=== PATIENT | male | born 1945 | race Caucasian/White ===

== ENCOUNTER 2017-07-03 07:38 | Inpatient (IN) | payer MEDICARE, OTHER ==
[~2017-07-03] VITALS: Ht 182.9 cm; Wt 83.9 kg
--- NOTE | ~2017-07-03 | PROC ---
[address] [address] PROCEDURE REPORT Name: NASRIN JOHNSON Room: [address] IN ..#: [id number] Admission: 07/03/17 Attend Phys: Lana Choi MD Discharge: Date of : 45 Report #: [id number] THIS REPORT FOR: //name// For GI report, please see the Provation report in Perceptive 7 content. By: 44Medical Records Staff AMOR /NICOLA
[2017-07-03 07:44] VITALS: BP 141/91
[2017-07-03] MEDS ORDERED: ZOCOR20 MG PO (07:47)
[2017-07-03] MEDS ORDERED: PLAVIX 75 MG TA75 M1 PO (07:47)
[2017-07-03] MEDS ORDERED: HYDROCHLOROTH12.5 M1 PO (07:47)
[2017-07-03] MEDS ORDERED: SYNTHROID88 MCG PO (07:47)
[2017-07-03] MEDS ORDERED: PROAIR HFA8.5 GM INH (07:48)
[2017-07-03] MEDS ORDERED: FLOVENT DISKUS50 MCG INH (07:48)
[2017-07-03 08:56] LABS: URINE BILIRUBIN NEGATIVE (Negative); URINE BLOOD NEGATIVE (Negative); URINE CLARITY CLEAR; URINE COLOR YELLOW; URINE GLUCOSE-RANDOM NEGATIVE (Negative); URINE KETONES NEGATIVE (Negative); URINE LEUKOCYTES-REFLEX NEGATIVE (Negative); URINE NITRITE-REFLEX NEGATIVE (Negative); URINE PROTEIN NEGATIVE (Negative); URINE SPECIFIC GRAVITY 1.025 (1.005-1.030); URINE UROBILINOGEN 0.2 E.U./dl (0.2-1.0)
[2017-07-03 08:58] LABS: ABSOLUTE BASOPHILS 0.1 thou/uL (0.0-0.2); ABSOLUTE EOSINOPHILS 0.4 thou/uL (0.0-0.7); ABSOLUTE LYMPHOCYTES 2.2 thou/uL (0.8-5.3); ABSOLUTE MONOCYTES 0.9 thou/uL (0.0-1.2); ABSOLUTE NEUTROPHILS 5.5 thou/uL (1.6-8.1); BASOPHILS 1.1 %; EOSINOPHILS 4.5 %; HEMATOCRIT 34.7 % (42.0-52.0); HEMOGLOBIN 11.9 gm/dL (14.0-18.0); LYMPHOCYTES 24.5 %; MCH 32.8 pg (26.0-34.0); MCHC 34.2 g/dL (28.0-37.0); MONOCYTES 9.8 %; MPV 9.9 fl. (7.2-11.1); NUCLEATED RBCS 0 /100WBC; PLATELET COUNT* 209 thou/uL (150-400); POLYS 60.1 %; RBC 3.61 mil/uL (4.50-6.00); RDW-CV 13.6 % (10.5-14.5); WBC 9.1 thou/uL (4.0-11.0)
[2017-07-03 09:04] LABS: CALCIUM 8.7 mg/dL (8.5-10.1); CREATININE 1.6 mg/dL (0.6-1.3); POTASSIUM 3.9 mmol/L (3.5-5.1)
[2017-07-03 09:09] LABS: ALBUMIN 3.7 g/dL (3.4-5.0); TOTAL BILIRUBIN 0.3 mg/dL (<0.1-1.0); TOTAL PROTEIN 6.8 g/dL (6.4-8.2)
[2017-07-03 09:59] VITALS: BP 143/98
[2017-07-03 10:20] VITALS: BP 155/86
--- NOTE | 2017-07-03 11:08 | EKG ---
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 [employer] : 1945 Requested By: Mert Saldana Order Number: [id number] Corky MD: Arthur Mejia Measurements Intervals [place] Rate: 73 P: -16 NV: 182 QRS: 18 QRSD: 106 T: 49 QT: 396 QTc: 437 Interpretive Statements Sinus rhythm Multiform ventricular premature complexes RSR' in V1 or V2, right VCD or RVH No previous ECG available for comparison Electronically Signed On 07-03-2017 11:08:23 [employer] by Arthur Mejia [email or web address] <ELECTRONICALLY SIGNED> By: Arthur Mejia MD, [facility] 07/03/17 1108 0801 0801 Arthur Mejia MD, [facility] /EPI
--- NOTE | 2017-07-03 11:19 | NUR ---
ASSUMED CARE OF PATIENT AT 1020 AFTER TRANSFER TO ROOM 107 FROM EMERGENCY DEPARTMENT. PATIENT AWAKE, ALERT, AND ORIENTED APPROPRIATELY. ADMISSION DOCUMENTATION COMPLETED AND CHARTED. NO COMPLAINTS OF PAIN. ORIENTED TO ROOM AND EDUCATED REGARDING USE OF CALL LIGHT. DENIES NEEDS AT THIS TIME. NURSING WILL CONTINUE TO MONITOR.
[2017-07-03 13:13] LABS: HEMATOCRIT 32.5 % (42.0-52.0); HEMOGLOBIN 11.2 gm/dL (14.0-18.0); MCH 33.1 pg (26.0-34.0); MCHC 34.3 g/dL (28.0-37.0); MCV 96.4 fL (80.0-100.0); MPV 9.3 fl. (7.2-11.1); RBC 3.37 mil/uL (4.50-6.00); RDW-CV 13.9 % (10.5-14.5); WBC 8.9 thou/uL (4.0-11.0)
--- NOTE | 2017-07-03 15:08 | NUR ---
GIVEN GOLYTELY FOR COLON PREP AT THIS TIME. GIVEN TWO LITERS AND INSTRUCTED PATIENT TO DRINK IT ALL. PATIENT AGREED TO DO SO. WILL LET NURSE KNOW WHEN 2 LITERS IS COMPLETELY DRANK. 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 PATIENT AGREED TO DO SO. NURSING WILL CONTINUE TO MONITOR.
[2017-07-03 16:00] VITALS: BP 160/82
--- NOTE | 2017-07-03 17:50 | NUR ---
NO CHANGE IN PATIENT STATUS. GIVEN PRN TYLENOL FOR HEADACHE, RESOLVED. CONTINUES TO DRINK GOLYTELY FOR COLON PREP TOMORROW. DENIES NEEDS AT THIS TIME. CALL LIGHT WITHIN REACH. NURSING WILL CONTINUE TO MONITOR.
[2017-07-03 19:16] LABS: HEMATOCRIT 33.6 % (42.0-52.0); HEMOGLOBIN 11.4 gm/dL (14.0-18.0); MCH 32.9 pg (26.0-34.0); MCV 96.7 fL (80.0-100.0); MPV 9.3 fl. (7.2-11.1); RBC 3.47 mil/uL (4.50-6.00); RDW-CV 14.3 % (10.5-14.5); WBC 9.4 thou/uL (4.0-11.0)
[2017-07-03 20:00] VITALS: BP 142/88
[2017-07-04 01:28] LABS: HEMATOCRIT 29.6 % (42.0-52.0); HEMOGLOBIN 10.3 gm/dL (14.0-18.0); MCH 33.3 pg (26.0-34.0); MCHC 34.7 g/dL (28.0-37.0); MPV 9.9 fl. (7.2-11.1); RBC 3.08 mil/uL (4.50-6.00); RDW-CV 14.1 % (10.5-14.5); WBC 10.4 thou/uL (4.0-11.0)
[2017-07-04 01:47] LABS: ALBUMIN 3.2 g/dL (3.4-5.0); CALCIUM 7.9 mg/dL (8.5-10.1); CREATININE 1.3 mg/dL (0.6-1.3); MAGNESIUM 1.6 mg/dL (1.8-2.4); POTASSIUM 3.7 mmol/L (3.5-5.1); TOTAL BILIRUBIN 0.4 mg/dL (<0.1-1.0); TOTAL PROTEIN 5.4 g/dL (6.4-8.2)
--- NOTE | 2017-07-04 07:52 | NUR ---
PT COMPLETES BOWEL PREP, PT HAD RUST COLORED STOOLS THROUGHOUT THE NIGHT, REPORTS LAST STOOL WAS CLEAR, PT VOICES NO COMPLIANT/CONCERNS THIS SHIFT, UP AD MONET, PT REQUEST JELLO AND CHICKEN BROTH THIS AM PRIOR TO BECOMMING NPO, GIVEN BY THIS NURSE, REPORTED TO NARDA PRADO AT 0730
[2017-07-04 08:01] VITALS: BP 155/65
[2017-07-04 12:06] LABS: ABSOLUTE BASOPHILS 0.1 thou/uL (0.0-0.2); ABSOLUTE EOSINOPHILS 0.3 thou/uL (0.0-0.7); ABSOLUTE LYMPHOCYTES 1.9 thou/uL (0.8-5.3); ABSOLUTE MONOCYTES 0.6 thou/uL (0.0-1.2); ABSOLUTE NEUTROPHILS 4.8 thou/uL (1.6-8.1); BASOPHILS 1.1 %; EOSINOPHILS 4.4 %; HEMATOCRIT 31.4 % (42.0-52.0); HEMOGLOBIN 10.8 gm/dL (14.0-18.0); LYMPHOCYTES 24.1 %; MCH 33.2 pg (26.0-34.0); MCHC 34.5 g/dL (28.0-37.0); MCV 96.4 fL (80.0-100.0); MONOCYTES 8.4 %; MPV 9.2 fl. (7.2-11.1); NUCLEATED RBCS 0 /100WBC; PLATELET COUNT* 184 thou/uL (150-400); RBC 3.25 mil/uL (4.50-6.00); RDW-CV 14.3 % (10.5-14.5); WBC 7.7 thou/uL (4.0-11.0)
[2017-07-04 13:02] VITALS: BP 155/65
[2017-07-04 16:00] VITALS: BP 138/83
--- NOTE | 2017-07-04 17:09 | NUR ---
ASSUMED CARE OF PATIENT AFTER REPORT THIS MORNING. PATIENT AWAKE, ALERT, AND ORIENTED APPROPRIATELY. PHYSICAL ASSESSMENT COMPLETED AND CHARTED. NO COMPLAINTS OF PAIN THIS SHIFT. GIVEN SCHEDULED MEDICATIONS, SEE EMAR FOR DOCUMENTATION. VITAL SIGNS STABLE. OXYGEN SATURATION WITHIN NORMAL LIMITS ON ROOM AIR. PATIENT HAD EGD/COLONOSCOPY TODAY. POST-PROCEDURE GI DR SAID PATIENT COULD DISCHARGE TO HOME, SCRIPTS ON CHART. HOWEVER, MEDICAL WANTED TO KEEP PATIENT OVERNIGHT TO CONTINUE MONITORING HEMOGLOBIN LEVEL. PATIENT HAS BEEN UP AD MONET WITH BATHROOM PRIVELEGES. CALL LIGHT WITHIN REACH, USES APPROPRIATELY. DENIES NEEDS AT THIS TIME. NURSING WILL CONTINUE TO MONITOR.
[2017-07-04 20:00] VITALS: BP 141/61
[2017-07-05 01:09] VITALS: BP 126/70
--- NOTE | 2017-07-05 04:24 | NUR ---
PATIENT ORIENTED X4. DENIES PAIN AND NAUSEA. DENIES ANY RECTAL BLEEDING. UP AD MONET IN HALLWAY. VITALS STABLE. CONTINUE TO MONITOR.
[2017-07-05 04:59] VITALS: BP 119/60
[2017-07-05 05:08] LABS: ALBUMIN 3.3 g/dL (3.4-5.0); CALCIUM 8.1 mg/dL (8.5-10.1); CREATININE 1.4 mg/dL (0.6-1.3); MAGNESIUM 2.2 mg/dL (1.8-2.4); POTASSIUM 3.7 mmol/L (3.5-5.1); TOTAL BILIRUBIN 0.4 mg/dL (<0.1-1.0); TOTAL PROTEIN 5.5 g/dL (6.4-8.2)
[2017-07-05 05:10] LABS: HEMATOCRIT 27.6 % (42.0-52.0); HEMOGLOBIN 9.6 gm/dL (14.0-18.0); MCH 32.9 pg (26.0-34.0); MCHC 34.7 g/dL (28.0-37.0); MCV 94.8 fL (80.0-100.0); MPV 10.1 fl. (7.2-11.1); RBC 2.91 mil/uL (4.50-6.00); RDW-CV 13.9 % (10.5-14.5); WBC 8.8 thou/uL (4.0-11.0)
[2017-07-05 08:55] VITALS: BP 121/73
[2017-07-05 09:11] VITALS: BP 121/73
[2017-07-05] MEDS ORDERED: PROTONIX40 M1 PO (09:21)
[2017-07-05] MEDS ORDERED: MIRALAX17 GM PO (09:22)
[2017-07-05] MEDS ORDERED: PROCTOFOAM15 GM RECTAL (09:24)
[2017-07-05 10:01] VITALS: BP 121/73
--- NOTE | 2017-07-05 10:05 | NUR ---
PATIENT LEFT UNIT AT 1005 AMBULATORY WITH NURSING STAFF. IV DC'D. EDUCATED PATIENT ON NEW MED SCRIPTS AND DISCHARGE INSTRUCTIONS. PATIENT VERBALIZED UNDERSTANDING. ALL BELONGINGS LEFT WITH PATIENT.
--- NOTE | 2017-08-03 14:50 | CON ---
[address] [address] CONSULTATION Name: NASRIN JOHNSON Room: [address] IN .R.#: [id number] Admission: 07/03/17 Attend Phys: Lana Choi MD Discharge: 07/05/17 Date of : 45 Report #: [id number] THIS REPORT FOR: //name// CC: Arthur Choi DATE OF SERVICE: 07/03/2017 ADDENDUM I have personally seen and examined the patient and reviewed labs and imaging. The patient with family history of colon cancer as his brother has from colon CA and personal history of colon polyps, who started having painless rectal bleeding since Monday. The patient reports that since the bleeding was continuing and he was starting to feel dizzy, he decided to come to hospital. Since admission, his hemoglobin has been checked, which is around 11.5. He usually takes Plavix, which has been on hold. He is currently lying comfortably in his bed and getting prepped for colonoscopy. Since the patient admits to taking NSAIDs, we will consider upper endoscopy as well. <ELECTRONICALLY SIGNED> By: Herbie Shell MD 08/03/17 1450 1658 53Farmorro Shell MD /nt
--- NOTE | 2017-08-03 14:50 | CON ---
[address] [address] CONSULTATION Name: NASRIN JOHNSON Room: [address] IN .#: [id number] Admission: 07/03/17 Attend Phys: Lana Choi MD Discharge: 07/05/17 Date of : 45 Report #: [id number] THIS REPORT FOR: //name// CC: Arthur Choi DICTATED BY: Yessica Dean [facility] DATE OF SERVICE: 07/03/2017 Please note at the time of this dictation, the patient was seen and physically examined by myself. REASON FOR CONSULTATION: Rectal bleeding. HISTORY OF PRESENT ILLNESS: This 71-year-old male presented to the emergency room with chief complaint of having rectal bleeding, which has been ongoing since a.m. He states he has never had any bleeding like this in the past. He said it is both bright red blood as well as black in nature. It is very loose and it is occurring several times a day. This morning prior to him coming in, he states after the bowel movement he felt a little lightheaded and dizzy and because of his history of having colon polyps with his last colonoscopy being in 2013, he had 5 polyps removed and he was scheduled to have an outpatient colonoscopy on 07/22/2017, with Dr. Looney at that time. The patient states that he could not wait that long and the way that he was feeling that prompted him to come in. The patient does use NSAIDs daily on a regular basis anywhere from 2-4 minimum daily. ALLERGIES: No known drug allergies. MEDICATIONS FROM HOME: Include Plavix, Zocor, Synthroid, hydrochlorothiazide, Flovent and ProAir. PAST MEDICAL HISTORY: Asthma, some emphysema, he has had colon polyps removed and heart stents in the past in which he is on anticoagulant therapy. FAMILY HISTORY: Brother from colon cancer. SOCIAL HISTORY: Alcohol socially. Denies any tobacco or illegal drug use. REVIEW OF SYSTEMS: Twelve-point review of systems is essentially negative except what is mentioned in the HPI. PHYSICAL EXAMINATION: VITAL SIGNS: Temperature 36.4, pulse 76, respirations 18, [place] [address] CONSULTATION Name: NASRIN JOHNSON Room: [address]#: [id number] Admission: 07/03/17 Attend Phys: Lana Choi MD Discharge: 07/05/17 Date of : 45 Report #: [id number] 155/86. HEART: Regular rate and rhythm. LUNGS: Clear. ABDOMEN: Soft, positive bowel sounds in all 4 quadrants with no masses or tenderness noted. LABORATORY DATA: Hemoglobin is 11.9 on admission, hematocrit 34.7, white count is 9.1, and platelet is 204. Sodium 142, potassium 3.9, chloride 105, CO2 of 28, BUN is 26, creatinine is 1.6, GFR is 43, and glucose is 119. Iron is 59. Ferritin 153. B12 is 482. Back in June 2016, the patient had a hemoglobin of 13.9. IMPRESSION: 1. Rectal bleeding. 2. History of colon polyps. 3. Family history of colon cancer, brother. 4. NSAID use regularly. 5. Anticoagulant therapy secondary to stents, Plavix. PLAN: 1. EGD and colonoscopy tomorrow with Dr. Shell. 2. We will start prep today. 3. Hold his Plavix. 4. Further recommendations to be made once the procedure has been performed tomorrow. I have personally seen and examined the patient and reviewed labs and imaging. The patient with family history of colon cancer as his brother has from colon CA and personal history of colon polyps, who started having painless rectal bleeding since Monday. The patient reports that since the bleeding was continuing and he was starting to feel dizzy, he decided to come to hospital. Since admission, his hemoglobin has been checked, which is around 11.5. He usually takes Plavix, which has been on hold. He is currently lying comfortably in his bed and getting prepped for colonoscopy. Since the patient admits to taking NSAIDs, we will consider upper endoscopy as well. Thank you for allowing us to participate in this patient's care. Please do not hesitate to call with any questions in regard to this consult. <ELECTRONICALLY SIGNED> By: Herbie Shell MD 08/03/17 1450 1303 [id number] Shell MD /nt
== END 2017-07-05 10:07 | disposition home or self-care (01) | DRG 682 ==
LOC: M.ERS 07:38 → M.ORTHSURG 09:15 → M.TBA-ER 09:15 → M.ORTHSURG 10:21
PROVIDERS: Emergency Medicine; ADMIT Internal Medicine
PROC: 0DJD8ZZ Inspection of Lower Intestinal Tract, Via Natural or Artificial Opening Endoscopic (ICD-10-PCS; principal; 2017-07-04)
PROC: 0DJ08ZZ Inspection of Upper Intestinal Tract, Via Natural or Artificial Opening Endoscopic (ICD-10-PCS; principal; 2017-07-04)
DX: N17.9 Acute kidney failure, unspecified (principal); K22.11 Ulcer of esophagus with bleeding; K57.31 Diverticulosis of large intestine without perforation or abscess with bleeding; D62 Acute posthemorrhagic anemia; D12.5 Benign neoplasm of sigmoid colon; K64.4 Residual hemorrhoidal skin tags; K64.8 Other hemorrhoids; N18.9 Chronic kidney disease, unspecified; E78.5 Hyperlipidemia, unspecified; I25.10 Atherosclerotic heart disease of native coronary artery without angina pectoris; K21.0 Gastro-esophageal reflux disease with esophagitis; K44.9 Diaphragmatic hernia without obstruction or gangrene; J44.9 Chronic obstructive pulmonary disease, unspecified; Z87.891 Personal history of nicotine dependence; Z95.5 Presence of coronary angioplasty implant and graft; Z79.02 Long term (current) use of antithrombotics/antiplatelets; Z79.51 Long term (current) use of inhaled steroids; Z79.899 Other long term (current) drug therapy; Z86.010 Personal history of colon polyps; Z80.0 Family history of malignant neoplasm of digestive organs

== ENCOUNTER 2020-02-13 21:01 | Inpatient (IN) | payer MEDICARE, OTHER ==
[~2020-02-13] VITALS: Ht 182.9 cm; Wt 104.8 kg
[~2020-02-13 21:01] MED LIST: FLOVENT DISKUS50 MCG INH; HYDROCHLOROTH12.5 M1 PO; MIRALAX17 GM PO; PLAVIX 75 MG TA75 M1 PO; PROAIR HFA8.5 GM INH; PROCTOFOAM15 GM RECTAL; PROTONIX40 M1 PO; SYNTHROID88 MCG PO; ZOCOR20 MG PO
[2020-02-13 22:05] LABS: HEMATOCRIT 39.3 % (42.0-52.0); HEMOGLOBIN 13.6 gm/dL (14.0-18.0); MCH 33.6 pg (26.0-34.0); MCHC 34.6 g/dL (28.0-37.0); MCV 97.1 fL (80.0-100.0); NUCLEATED RBCS 0 /100WBC; PLATELET COUNT* 212 thou/uL (150-400); RBC 4.05 mil/uL (4.50-6.00); WBC 22.2 thou/uL (4.0-11.0)
[2020-02-13 22:21] LABS: CALCIUM 8.9 mg/dL (8.5-10.1); POTASSIUM 4.1 mmol/L (3.5-5.1)
[2020-02-13 22:22] LABS: PROTIME 10.6 Seconds (9.20-11.50)
[2020-02-13 22:32] LABS: ALBUMIN 4.1 g/dL (3.4-5.0); MAGNESIUM 1.9 mg/dL (1.8-2.4); TOTAL BILIRUBIN 0.8 mg/dL (<0.1-1.0); TOTAL PROTEIN 7.3 g/dL (6.4-8.2)
[2020-02-14] VITALS (7 sets, daily range): BP systolic 103–134; BP diastolic 56–73
[2020-02-14 00:17] LABS: ABSOLUTE LYMPHOCYTES 0.4 thou/uL (0.8-5.3); ABSOLUTE MONOCYTES 1.8 thou/uL (0.0-1.2)
[2020-02-14 00:18] LABS: PLATELET ESTIMATE ADEQUATE; TOXIC GRANULATION 2+
[2020-02-14 09:07] LABS: ABSOLUTE BASOPHILS 0.1 thou/uL (0.0-0.2); ABSOLUTE LYMPHOCYTES 0.9 thou/uL (0.8-5.3); ABSOLUTE NEUTROPHILS 21.1 thou/uL (1.6-8.1); BASOPHILS 0.5 %; HEMOGLOBIN 13.5 gm/dL (14.0-18.0); LYMPHOCYTES 4.1 %; MCH 32.9 pg (26.0-34.0); MCHC 33.7 g/dL (28.0-37.0); MCV 97.5 fL (80.0-100.0); MONOCYTES 4.4 %; MPV 9.2 fl. (7.2-11.1); NUCLEATED RBCS 0 /100WBC; PLATELET COUNT* 203 thou/uL (150-400); RDW-CV 14.3 % (10.5-14.5); WBC 23.2 thou/uL (4.0-11.0)
[2020-02-14 09:11] LABS: ANION GAP 9 mmol/L (7-16); BUN 29 mg/dL (7-18); CALCIUM 8.2 mg/dL (8.5-10.1); CHLORIDE 102 mmol/L (98-107); CO2 27 mmol/L (21-32); CREATININE 1.9 mg/dL (0.6-1.3); GLUCOSE 115 mg/dL (70-99); POTASSIUM 4.2 mmol/L (3.5-5.1); SODIUM 138 mmol/L (136-145)
[2020-02-14 09:15] LABS: CHOLESTEROL 160 mg/dL (<200); HDL CHOLESTEROL 40 mg/dL (>40); LDL CHOLESTEROL 89 mg/dL (<100); TRIGLYCERIDE 156 mg/dL (<150); VLDL 31 mg/dL (<40)
[2020-02-14 09:16] LABS: SERUM ASSESSMENT Clear
--- NOTE | 2020-02-14 10:38 | EKG ---
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
--- NOTE | 2020-02-14 12:29 | 2DMMODE ---
[place] [address] 2 D/M-MODE ECHOCARDIOGRAM Name: NASRIN JOHNSON Lizz Room: [place] [address] [facility].#: [id number] Admission: 02/14/20 Attend Phys: Sea Wilson Discharge: Date of : 45 Date of Service: 02/14/20 1229 Report #: [id number] THIS REPORT FOR: cc: Kristofer Harmon MD, Dean L. MD Holkins,Beto Brower MD [facility] ~ APPROVED REPORT Study performed: 02/14/2020 10:42:03 EXAM: Comprehensive 2D, Doppler, and color-flow Echocardiogram Patient Location: In-Patient Room #: er Status: routine BSA: 2.21 HR: 78 bpm BP: 121/68 mmHg Rhythm: NSR Other Information Study Quality: Good Indications Dyspnea 2D Dimensions IVSd: 11.46 (7-11mm) LVOT Diam: 21.66 (18-24mm) LVDd: 49.59 mm PWd: 9.59 (7-11mm) Ascending Ao: 34.52 (22-36mm) LVDs: 28.23 (25-40mm) Aortic Root: 36.02 mm Volumes Left Atrial Volume (Systole) LA ESV Index: 21.90 mL/m2 Aortic Valve AoV Peak Manny.: 1.67 m/s AO Peak Gr.: 11.22 mmHg LVOT Max P.34 mmHg AO Mean Gr.: 6.85 mmHg LVOT Mean P.45 mmHg LVOT Max V: 1.16 m/s AO V2 VTI: 27.62 cm LVOT Mean V: 0.71 m/s TIERRA (VTI): 2.62 cm2 LVOT V1 VTI: 19.62 [place] [address] 2 D/M-MODE ECHOCARDIOGRAM Name: NASRIN JOHNSON Room: [address] IN [facility]#: [id number] Admission: 02/14/20 Attend Phys: Sea Wilson Discharge: Date of : 45 Date of Service: 02/14/20 1229 Report #: [id number] Mitral Valve E/A Ratio: 1.20 MV Decel. Time: 190.62 ms MV E Max Manny.: 0.83 m/s MV PHT: 55.28 ms MVA (PHT): 3.98 cm2 TDI E/Lateral E': 6.92 E/Medial E': 5.93 Medial E' Manny.: 0.14 m/s Lateral E' Manny.: 0.12 m/s Pulmonary Valve PV Peak Manny.: 1.13 m/s PV Peak Gr.: 5.11 mmHg Tricuspid Valve RAP Estimate: 5.00 mmHg TR Peak Gr.: 37.25 mmHg RVSP: 42.00 mmHg PA Pressure: 42.00 mmHg Left Ventricle The left ventricle is normal size. There is normal LV segmental wall motion. There is normal left ventricular wall thickness. Left ventricular systolic function is normal. The left ventricular ejection fraction is within the normal range. LVEF is 55-60%. The left ventricular diastolic function is normal. Right Ventricle The right ventricle is normal size. The right ventricular systolic function is normal. Atria The left atrium size is normal. The right atrium size is normal. Aortic Valve The aortic valve is normal in structure. No aortic regurgitation is present. There is no aortic valvular stenosis. Mitral Valve Mild mitral annular calcification. Trace mitral regurgitation. No evidence of mitral valve stenosis. Tricuspid Valve The tricuspid valve is normal in structure. Mild tricuspid regurgitation. [place] [address] 2 D/M-MODE ECHOCARDIOGRAM Name: NASRIN JOHNSON Room: [address] IN [facility]#: [id number] Admission: 02/14/20 Attend Phys: Sea Wilson Discharge: Date of : 45 Date of Service: 02/14/20 1229 Report #: [id number] Pulmonic Valve The pulmonary valve is normal in structure. There is no pulmonic valvular regurgitation. Great Vessels The aortic root is normal in size. IVC is normal in size and collapses >50% with inspiration. Pericardium There is no pericardial effusion. <Conclusion> The left ventricle is normal size. There is normal left ventricular wall thickness. Left ventricular systolic function is normal. The left ventricular ejection fraction is within the normal range. LVEF is 55-60%. The left ventricular diastolic function is normal. The right ventricle is normal size. The left atrium size is normal. The aortic valve is normal in structure. Mild mitral annular calcification. Trace mitral regurgitation. No evidence of mitral valve stenosis. The tricuspid valve is normal in structure. Mild tricuspid regurgitation. Moderate pulmonary hypertension. IVC is normal in size and collapses >50% with inspiration. There is no pericardial effusion. There is normal LV segmental wall motion. <ELECTRONICALLY SIGNED> By: Beto Hart MD, FACC 02/14/20 1229 1229 1229 Beto Hart MD, FACC /INF
--- NOTE | 2020-02-14 15:03 | EKG ---
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1945 Requested By: Lawson Bautista Order Number: [id number] Corky MD: Beto Hart Measurements Intervals [place] Rate: 69 P: 40 TX: 215 QRS: 19 QRSD: 106 T: 73 QT: 369 QTc: 396 Interpretive Statements Sinus rhythm First-degree AV block Borderline low voltage, extremity leads Posterior infarct, old possible Compared to ECG 02/13/2020 21:10:06 Myocardial infarct finding now suggested Atrial fibrillation no longer present Electronically Signed On 02-14-2020 15:03:11 CDT by Beto Hart [email or web address] <ELECTRONICALLY SIGNED> By: Beto Hart MD, FAC 02/14/20 1503 1405 1405 Beto Hart MD, FAC /EPI
[2020-02-14 19:00] LABS: URINE BILIRUBIN NEGATIVE (Negative); URINE BLOOD TRACE (Negative); URINE CLARITY CLEAR; URINE COLOR YELLOW; URINE GLUCOSE-RANDOM NEGATIVE (Negative); URINE KETONES NEGATIVE (Negative); URINE LEUKOCYTES-REFLEX NEGATIVE (Negative); URINE NITRITE-REFLEX NEGATIVE (Negative); URINE PROTEIN TRACE (Negative); URINE SPECIFIC GRAVITY 1.025 (1.005-1.030); URINE UROBILINOGEN 0.2 E.U./dl (0.2-1.0)
[2020-02-14 19:05] LABS: URINE POTASSIUM-RANDOM 79.5 mmol/L
[2020-02-15] VITALS: BP 117/64
[2020-02-15 04:00] VITALS: BP 114/76
[2020-02-15 05:15] LABS: HEMATOCRIT 40.1 % (42.0-52.0); HEMOGLOBIN 13.6 gm/dL (14.0-18.0); MCH 33.7 pg (26.0-34.0); MCHC 33.9 g/dL (28.0-37.0); MCV 99.3 fL (80.0-100.0); MPV 8.8 fl. (7.2-11.1); RBC 4.03 mil/uL (4.50-6.00); RDW-CV 14.6 % (10.5-14.5); WBC 17.1 thou/uL (4.0-11.0)
[2020-02-15 05:44] LABS: ALBUMIN 3.5 g/dL (3.4-5.0); CALCIUM 7.9 mg/dL (8.5-10.1); CREATININE 2.1 mg/dL (0.6-1.3); MAGNESIUM 2.2 mg/dL (1.8-2.4); POTASSIUM 3.9 mmol/L (3.5-5.1); TOTAL BILIRUBIN 0.5 mg/dL (<0.1-1.0); TOTAL PROTEIN 6.6 g/dL (6.4-8.2)
[2020-02-15 07:58] VITALS: BP 135/76
[2020-02-15 12:32] VITALS: BP 123/78
[2020-02-15 15:59] VITALS: BP 135/73
[2020-02-15 20:00] VITALS: BP 147/83
[2020-02-16 00:21] VITALS: BP 116/68
[2020-02-16 04:37] VITALS: BP 121/61
[2020-02-16 05:25] LABS: ABSOLUTE EOSINOPHILS 0.1 thou/uL (0.0-0.7); ABSOLUTE MONOCYTES 1.4 thou/uL (0.0-1.2); ABSOLUTE NEUTROPHILS 8.9 thou/uL (1.6-8.1); BASOPHILS 0.4 %; EOSINOPHILS 0.9 %; HEMATOCRIT 35.5 % (42.0-52.0); HEMOGLOBIN 12.4 gm/dL (14.0-18.0); LYMPHOCYTES 16.1 %; MCH 33.8 pg (26.0-34.0); MCHC 34.8 g/dL (28.0-37.0); MONOCYTES 11.1 %; MPV 9.5 fl. (7.2-11.1); NUCLEATED RBCS 0 /100WBC; PLATELET COUNT* 170 thou/uL (150-400); POLYS 71.5 %; RBC 3.66 mil/uL (4.50-6.00); RDW-CV 14.3 % (10.5-14.5); WBC 12.4 thou/uL (4.0-11.0)
[2020-02-16 05:36] LABS: ALBUMIN 2.9 g/dL (3.4-5.0); CALCIUM 8.3 mg/dL (8.5-10.1); CREATININE 1.7 mg/dL (0.6-1.3); POTASSIUM 3.4 mmol/L (3.5-5.1); TOTAL BILIRUBIN 0.5 mg/dL (<0.1-1.0); TOTAL PROTEIN 6.5 g/dL (6.4-8.2)
[2020-02-16 07:42] VITALS: BP 139/76
[2020-02-16 12:39] VITALS: BP 135/72
[2020-02-16 15:53] VITALS: BP 149/85
[2020-02-16 20:00] VITALS: BP 143/75
[2020-02-17] VITALS: BP 145/78
[2020-02-17 04:00] VITALS: BP 154/78
[2020-02-17 04:58] LABS: ABSOLUTE BASOPHILS 0.1 thou/uL (0.0-0.2); ABSOLUTE EOSINOPHILS 0.2 thou/uL (0.0-0.7); ABSOLUTE LYMPHOCYTES 1.7 thou/uL (0.8-5.3); ABSOLUTE MONOCYTES 1.1 thou/uL (0.0-1.2); ABSOLUTE NEUTROPHILS 6.3 thou/uL (1.6-8.1); BASOPHILS 0.8 %; EOSINOPHILS 2.1 %; HEMATOCRIT 35.1 % (42.0-52.0); HEMOGLOBIN 12.4 gm/dL (14.0-18.0); LYMPHOCYTES 17.5 %; MCHC 35.4 g/dL (28.0-37.0); MCV 96.2 fL (80.0-100.0); MONOCYTES 12.2 %; NUCLEATED RBCS 0 /100WBC; PLATELET COUNT* 191 thou/uL (150-400); POLYS 67.4 %; RBC 3.65 mil/uL (4.50-6.00); WBC 9.4 thou/uL (4.0-11.0)
[2020-02-17 05:27] LABS: ALBUMIN 2.9 g/dL (3.4-5.0); CALCIUM 8.4 mg/dL (8.5-10.1); CREATININE 1.6 mg/dL (0.6-1.3); POTASSIUM 3.7 mmol/L (3.5-5.1); TOTAL BILIRUBIN 0.7 mg/dL (<0.1-1.0); TOTAL PROTEIN 6.6 g/dL (6.4-8.2)
[2020-02-17 07:43] VITALS: BP 149/81
[2020-02-17] MEDS ORDERED: DILTIAZEM 24HR180 M1 PO (10:05)
[2020-02-17] MEDS ORDERED: ELIQUIS5 MG PO (10:05)
[2020-02-17] MEDS ORDERED: MINOCYCLINE HC100 M2 PO (10:06)
[2020-02-17 15:01] VITALS: BP 149/81
[2020-02-17 16:02] VITALS: BP 137/78
== END 2020-02-17 16:35 | disposition home or self-care (01) | DRG 871 ==
LOC: M.ERS 21:01 → M.TBA-ER 02-14 00:28 → M.2W 02-14 13:49
PROVIDERS: Emergency Medicine; Internal Medicine; ADMIT Family Medicine; ATTEND Family Medicine
DX: A41.9 Sepsis, unspecified organism (principal); G92 Toxic encephalopathy; N17.0 Acute kidney failure with tubular necrosis; L03.115 Cellulitis of right lower limb; E78.5 Hyperlipidemia, unspecified; N18.9 Chronic kidney disease, unspecified; I12.9 Hypertensive chronic kidney disease with stage 1 through stage 4 chronic kidney disease, or unspecified chronic kidney disease; I48.91 Unspecified atrial fibrillation; Z20.828 Contact with and (suspected) exposure to other viral communicable diseases; I25.10 Atherosclerotic heart disease of native coronary artery without angina pectoris; E03.9 Hypothyroidism, unspecified; J45.909 Unspecified asthma, uncomplicated; J43.9 Emphysema, unspecified; Z79.899 Other long term (current) drug therapy; Z95.5 Presence of coronary angioplasty implant and graft